=== PATIENT | male | born 1955 | race Caucasian/White ===

== ENCOUNTER → 2018-01-11 09:04 | Outpatient (CLI) | payer MEDICAID, SELFPAY ==
--- NOTE | 2018-01-11 09:08 | US_ITS ---
STUDY: SUPERFICIAL ULTRASOUND - LEFT UPPER ARM ADJACENT TO THE SHOULDER. REASON FOR EXAM: Male, 62 years old. Palpable abnormality in the left upper arm. TECHNIQUE: A superficial ultrasound was performed with real-time and static staples-scale imaging. COMPARISON: None. FINDINGS: There is a 1 cm x 1.1 cm x 0.3 cm well-defined hypoechoic nodule were essential linear area of increased echotexture. This is suggestive of a small lymph node. US/Ext Non Vasc Limited/Soft Tiss IMPRESSION: The palpable abnormality corresponds most likely to a small lymph node. Electronically Signed: Henry Pozo MD at 14:21 EST Tel [phone], Service support ,
== END ==
PROVIDERS: Family Provider Preventive Medicine Occupational Medicine; PCP Preventive Medicine Occupational Medicine
DX: M79.89 Other specified soft tissue disorders (principal)
CPT/HCPCS: 76882

== ENCOUNTER → 2018-08-27 09:00 | Outpatient (CLI) | payer MEDICAID, SELFPAY | PROVIDERS: Family Provider Preventive Medicine Occupational Medicine; PCP Preventive Medicine Occupational Medicine; Visit Provider Family Medicine | DX: G47.33 Obstructive sleep apnea (adult) (pediatric) (principal) | CPT/HCPCS: 98960; G0463 ==

== ENCOUNTER → 2018-12-20 14:56 | Outpatient (CLI) | payer MEDICAID, SELFPAY | PROVIDERS: Family Provider Family Medicine; PCP Family Medicine; Referring Provider Family Medicine; Visit Provider Family Medicine | DX: Z00.00 Encounter for general adult medical examination without abnormal findings (principal) ==